=== PATIENT | female | born 1965 ===

== ENCOUNTER 2018-08-07 12:48 | Emergency (ER) | payer BC ==
[2018-08-07 12:48] VITALS: BMI 32.9
[2018-08-07] MEDS ORDERED: Sodium Chloride 0.9% 1,000 ML IV ONE (14:27)
--- NOTE | 2018-08-07 14:27 | C.PDOC ---
History Of Present Illness 52 y/o female presents to the ED complaining of recurrent diarrhea for the past few months. States she had 8-10 episodes of watery diarrhea since this morning. Patient has multiple prior ED evaluations for the same, and was last discharged home with Bentyl. Admits she has the Bentyl at home but did not take it. Patient reports she followed up with Dr. Cardoso and has a colonoscopy scheduled for 08/13. Today she reports diarrhea was similar to prior episodes, but associated with loss of appetite and generalized weakness. Otherwise patient denies any dark or bloody stool, nausea, vomiting, fevers, chills, weight loss, or pain. Nj bullard was previously on Nexium, Omeprazole, and Aciphex. She is not taking anything for the diarrhea. SEEN 01/2018 AND 04/2018, DIARRHEA @ THAT TIME Time Seen by Provider: 08/07/18 13:46 Chief Complaint (Nursing): GI Problem History Per: Patient History/Exam Limitations: no limitations Onset/Duration Of Symptoms: Intermittent Episodes Current Symptoms Are (Timing): Still Present Pain Scale Rating Of: 0 Associated Symptoms: Diarrhea (# 8-10) Past Medical History Reviewed: Historical Data, Nursing Documentation, Vital Signs Vital Signs: Last Vital Signs Temp 98.7 F 08/07/18 13:31 Pulse 77 08/07/18 13:31 Resp 20 08/07/18 13:31 BP 167/110 H 08/07/18 13:31 Pulse Ox 97 08/07/18 13:31 - Medical History PMH: Anxiety, Gastritis, HTN, Hypercholesterolemia, Hyperlipidemia Denies: Chronic Kidney Disease Family History: States: Unknown Family Hx - Social History Hx Alcohol Use: No Hx Substance Use: No - Immunization History Hx Tetanus Toxoid Vaccination: No Hx Influenza Vaccination: Yes Hx Pneumococcal Vaccination: No Review Of Systems Except As Marked, All Systems Reviewed And Found Negative. Constitutional: Positive for: Weakness (generalized). Negative for: Fever, Chills Cardiovascular: Negative for: Palpitations Respiratory: Negative for: Shortness of Breath Gastrointestinal: Positive for: Diarrhea. Negative for: Nausea, Vomiting, Abdominal Pain, Melena, Hematochezia Musculoskeletal: Negative for: Back Pain Neurological: Positive for: Headache (mild). Negative for: Weakness, Numbness, Dizziness Physical Exam - Physical Exam Appears: Non-toxic, No Acute Distress Skin: Normal Color, Warm, Dry Head: Atraumatic, Normacephalic Eye(s): bilateral: Normal Inspection, PERRL, EOMI Oral Mucosa: Moist Neck: Normal ROM Chest: Symmetrical Cardiovascular: Rhythm Regular, No Murmur Respiratory: Normal Breath Sounds, No Accessory Muscle Use, Other (NARD) Gastrointestinal/Abdominal: Bowel Sounds (active), Soft, No Tenderness, No Guarding, No Rebound Back: No CVA Tenderness, No Vertebral Tenderness Extremity: Bilateral: Atraumatic, Normal Color And Temperature Neurological/Psych: Oriented x3, Normal Speech ED Course And Treatment - Laboratory Results Result Diagrams: 08/07/18 15:20 08/07/18 15:20 O2 Sat by Pulse Oximetry: 97 (RA) Pulse Ox Interpretation: Normal Progress - Re-Evaluation Re-evaluation Note: 08/07/18 15:55 D/W DR JOSEPH: RECENT EVAL BY DR CARDOSO LAST WEEK, GIVEN CARAFATE RX. EVAL DR CARDOSO SINCE 2016 FOR SAME. AWARE OF ER FINDINGS, ADVISES CONTINUE MEDS PRESCRIBED BY DR CARDOSO, COLONOSCOPY SCHEDULED. - Data Reviewed Data Reviewed: Lab, Old records Medical Decision Making Medical Decision Making: Impression: Recurrent diarrhea Plan: Patient assessed and examined. Orders placed in for blood work, will compare to prior visit. Administered NS IV fluids and 975 mg PO Tylenol. Disposition Counseled Patient/Family Regarding: Diagnosis, Need For Followup - Disposition Referrals: Colten Cardoso MD [Staff Provider] - Disposition: HOME/ ROUTINE Disposition Time: 15:57 Condition: IMPROVED Instructions: Diarrhea and Traveler's Diarrhea, Adult (DC) Forms: [place] [employer] ([place]) - Clinical Impression Clinical Impression: Chronic diarrhea - Scribe Statement The provider has reviewed the documentation as recorded by the Kelsea Watt Provider Attestation: All medical record entries made by the Brianibe were at my direction and personally dictated by me. I have reviewed the chart and agree that the record accurately reflects my personal performance of the history, physical exam, medical decision making, and the department course for this patient. I have also personally directed, reviewed, and agree with the discharge instructions and d isposition.
[2018-08-07] MEDS ORDERED: Sodium Chloride 0.9% 1,000 ML ONE (14:57)
[2018-08-07 15:32] LABS: BASO % 1.4 % (0.0-2.0); EOS # 0.1 K/uL (0.0-0.7); EOS % 2.4 % (0.0-4.0); HEMOGLOBIN 13.4 g/dL (11.0-16.0); LYMPH # 1.2 K/uL (1.0-4.3); LYMPH % 34.5 % (20.0-40.0); MEAN CELL VOLUME 93.2 fL (81.0-99.0); MEAN CORPUSCULAR HEMOGLOBIN 30.6 pg (27.0-31.0); MEAN CORPUSCULAR HGB CONC 32.9 g/dL (33.0-37.0); MEAN PLATELET VOLUME 8.9 fL (7.2-11.7); MONO # 0.3 K/uL (0.0-0.8); MONO % 8.3 % (0.0-10.0); NEUT # 1.8 K/uL (1.8-7.0); NEUT % 53.4 % (50.0-75.0); NRBC % 0.2 % (0.0-2.0); RBC 4.37 Mil/uL (3.80-5.20); RED CELL DISTRIBUTION WIDTH 15.6 % (11.5-14.5); WHITE BLOOD COUNT 3.4 K/uL (4.8-10.8)
[2018-08-07 15:46] LABS: BLOOD UREA NITROGEN 9 mg/dL (7-17); CALCIUM 8.9 mg/dl (8.6-10.4); GFR NON-AFRICAN AMERICAN > 60
[2018-08-07 16:26] VITALS: BP 148/87; PULSE 74; RESP 14; TEMP 98.8; O2SAT 99
== END 2018-08-07 16:25 | disposition home or self-care (01) ==
LOC: C.ER 12:48
DX: K52.9 Noninfective gastroenteritis and colitis, unspecified (principal)
CPT/HCPCS: 80048; 85025; 96360; 99284; J7030

== ENCOUNTER 2018-08-20 16:06 | Emergency (ER) | payer BC ==
[2018-08-20 16:07] VITALS: BMI 32.9
--- NOTE | 2018-08-20 17:57 | C.PDOC ---
History Of Present Illness Patient is a 52 year old female, with a PMHx of anxiety, panic attacks, HTN, HLD, who presents to the ED today c/o tingling in both distal fingertips and increased warmth to the top of her head. Patient notes that she started having these symptoms yesterday after taking Losartan and after calling he instructed her to discontinue taking medication. She notes that she gets these symptoms every time she takes this medication for the past 3 weeks and states that her symptoms are similar to a resolving panic attack. She notes she took her blood pressure medication today because her bp was in the 150's and at this time denies any headache, head warmth, just tingling in her fingertips. She denies any neck stiffness, rash, headache, nausea, vomiting, falls, focal or neuro deficits, anxiety, depression, SI/HI. Time Seen by Provider: 08/20/18 17:57 Chief Complaint (Nursing): Medical Clearance History Per: Patient History/Exam Limitations: no limitations Onset/Duration Of Symptoms: Days (1) Additional History Per: Patient Past Medical History Reviewed: Historical Data, Nursing Documentation, Vital Signs Vital Signs: Last Vital Signs Temp 98.5 F 08/20/18 16:24 Pulse 89 08/20/18 16:24 Resp 18 08/20/18 16:24 BP 150/92 H 08/20/18 16:24 Pulse Ox 97 08/20/18 16:24 - Medical History PMH: Anxiety, Gastritis, HTN, Hypercholesterolemia, Hyperlipidemia Denies: Chronic Kidney Disease Family History: States: Unknown Family Hx - Social History Hx Alcohol Use: No Hx Substance Use: No - Immunization History Hx Tetanus Toxoid Vaccination: No Hx Influenza Vaccination: Yes Hx Pneumococcal Vaccination: No Review Of Systems Constitutional: Negative for: Fever, Chills, Weakness, Malaise Eyes: Negative for: Pain, Vision Change ENT: Negative for: Ear Pain, Ear Discharge, Mouth Pain, Throat Pain Cardiovascular: Negative for: Chest Pain Respiratory: Negative for: Shortness of Breath Gastrointestinal: Negative for: Nausea, Vomiting Musculoskeletal: Negative for: Neck Pain (stiffness) Skin: Negative for: Rash Neurological: Negative for: Headache, Other (focal or neuro deficits) Psych: Negative for: Anxiety, Depression, Suicidal ideation, Other (homicidal ideation) Physical Exam - Physical Exam Appears: Well, Non-toxic, No Acute Distress Skin: Warm, Dry Head: Atraumatic, Normacephalic, No Tenderness, No Swelling, No Abrasion, No Laceration Eye(s): bilateral: Normal Inspection, PERRL, EOMI Ear(s): Bilateral: Normal Nose: Normal Oral Mucosa: Moist Throat: Normal, No Erythema, No Exudate Neck: Trachea Midline, Supple, Other (No meningeal signs- negative kernig's and brudzinskis) Chest: Symmetrical Cardiovascular: Rhythm Regular, No Friction Rub Respiratory: No Rales, No Rhonchi, No Wheezing Gastrointestinal/Abdominal: Soft, No Tenderness, No Distention Back: Normal Inspection, No CVA Tenderness Extremity: Normal ROM, No Tenderness, No Swelling Extremity: Bilateral: Normal Color And Temperature Pulses: Left Dorsalis Pedis: Normal, Right Dorsalis Pedis: Normal Neurological/Psych: Oriented x3, Normal Speech, Normal Cognition, Normal Cranial Nerves, Normal Motor, Normal Sensation, Normal Reflexes Gait: Steady Extremity: Right: No Drift, Left: No Drift ED Course And Treatment - Laboratory Results Result Diagrams: 08/20/18 20:04 08/20/18 20:04 O2 Sat by Pulse Oximetry: 97 (on RA) Pulse Ox Interpretation: Normal Medical Decision Making Medical Decision Making: Patient is a 52 year old female, with a PMHx of anxiety, panic attacks, HTN, HLD, who presents to the ED today c/o tingling in both distal fingertips and increased warmth to the top of her head s/p ingestion of her losartan. Pt has known allergy by PMD s/p losartan ingestion and was instructed to d/c losartan usage. Pt notes that she used it today because her BP was elevated at 150 systo lic. She was asymptomatic at the time but after ingesting losartan she noted her usual reaction to the medication. She denies any fall or trauma. No meningeal signs. Normal neuro exam. Plan: Labs Ativan 0.5mg PO 2200 labs, unremarkable repeat neuro exam unremarkable no SI / HI, anxiety or depression clear for d/c home with return indications and f/u pt agreeable to plan. 0 pt eloped prior to d/c papers being given Disposition - Disposition Referrals: Brenda Soares MD [Medical Doctor] - [facility] [Outside] Counts Include [facility] [Outside] [facility] [Outside] Disposition: HOME/ ROUTINE Disposition Time: 22:09 Condition: GOOD Additional Instructions: STOP TAKING THE LOSARTAN THAT IS GIVING YOU THE SYMPTOMS. TAKE THE NEW ANTI HYPERTENSIVE THAT YOU WERE PRESCRIBED BY YOUR PRIMARY CARE DOCTOR. RETURN IF ANY OTHER COMPLAINTS. Instructions: Adverse Drug Reactions, Adult (DC), Panic Disorder (DC) Forms: [facility] (German) - Clinical Impression Clinical Impression: Medication side effect, Panic attack - Scribe Statement The provider has reviewed the documentation as recorded by the Kelsea Moore All medical record entries made by the Brianibmerlin were at my direction and personally dictated by me. I have reviewed the chart and agree that the record accurately reflects my personal performance of the history, physical exam, medi julian decision making, and the department course for this patient. I have also personally directed, reviewed, and agree with the discharge instructions and disposition.
[2018-08-20 20:15] LABS: BASO % 0.9 % (0.0-2.0); EOS # 0.1 K/uL (0.0-0.7); HEMOGLOBIN 13.3 g/dL (11.0-16.0); LYMPH # 1.7 K/uL (1.0-4.3); LYMPH % 34.2 % (20.0-40.0); MEAN CELL VOLUME 91.5 fL (81.0-99.0); MEAN CORPUSCULAR HGB CONC 33.9 g/dL (33.0-37.0); MEAN PLATELET VOLUME 8.4 fL (7.2-11.7); MONO # 0.4 K/uL (0.0-0.8); NEUT # 2.8 K/uL (1.8-7.0); NEUT % 54.9 % (50.0-75.0); NRBC % 0.1 % (0.0-2.0); RBC 4.31 Mil/uL (3.80-5.20); RED CELL DISTRIBUTION WIDTH 15.1 % (11.5-14.5)
[2018-08-20 20:28] LABS: ALB/GLOB RATIO 1.6 (1.0-2.1); ALBUMIN 4.3 g/dL (3.5-5.0); ALT/SGPT 134 U/L (9-52); AST/SGOT 125 U/L (14-36); BLOOD UREA NITROGEN 7 mg/dL (7-17); CALCIUM 9.7 mg/dl (8.6-10.4); GFR NON-AFRICAN AMERICAN > 60
[2018-08-20] MEDS ORDERED: Potassium Chloride 20 mEq ER Tab PO ONE (21:40)
[2018-08-20 22:06] VITALS: BP 127/85; PULSE 69; RESP 16; TEMP 98.1
[2018-08-20 22:14] VITALS: O2SAT 97
[2018-08-21] MEDS ORDERED: Potassium Chloride 20 mEq ER Tab PO ONE (21:00)
== END 2018-08-20 22:27 | disposition home or self-care (01) ==
LOC: C.ER 16:06
DX: F41.0 Panic disorder [episodic paroxysmal anxiety] (principal); T46.5X5A Adverse effect of other antihypertensive drugs, initial encounter

== ENCOUNTER 2018-10-09 19:24 | Observation (INO) | payer BC ==
[2018-10-09 19:24] VITALS: BMI 32.9
--- NOTE | 2018-10-09 21:14 | C.PDOC ---
History Of Present Illness 52 year old female with PMHx of HTN and HLD presents to the ED c/o leg swelling that has been worsening for the past few days to weeks. Patient also reports fatigue/sob when walking. Patient denies any other complaints. Time Seen by Provider: 10/09/18 21:05 Chief Complaint (Nursing): Lower Extremity Problem/Injury History Per: Patient History/Exam Limitations: no limitations Onset/Duration Of Symptoms: Days Current Symptoms Are (Timing): Still Present Recent travel outside of the [place]: No Additional History Per: Patient - Ankle/Foot Description Of Injury: Other Past Medical History Reviewed: Historical Data, Nursing Documentation, Vital Signs Vital Signs: Last Vital Signs Temp 98.8 F 10/09/18 19:42 Pulse 77 10/09/18 19:42 Resp 20 10/09/18 19:42 BP 156/103 H 10/09/18 19:42 Pulse Ox 98 10/09/18 19:42 Primary Care Provider: Marybeth Orellana - Medical History PMH: Anxiety, Gastritis, HTN, Hypercholesterolemia, Hyperlipidemia Denies: Chronic Kidney Disease Surgical History: No Surg Hx Family History: States: Unknown Family Hx - Social History Hx Alcohol Use: Yes Hx Substance Use: No - Immunization History Hx Tetanus Toxoid Vaccination: No Hx Influenza Vaccination: Yes Hx Pneumococcal Vaccination: No Review Of Systems Constitutional: Negative for: Fever, Chills Cardiovascular: Negative for: Chest Pain Respiratory: Negative for: Cough, Shortness of Breath Gastrointestinal: Negative for: Nausea, Vomiting, Abdominal Pain Musculoskeletal: Positive for: Leg Pain (swelling) Skin: Negative for: Rash Neurological: Negative for: Weakness, Numbness, Headache, Dizziness Physical Exam - Physical Exam Appears: Non-toxic, No Acute Distress, Other (anxious appearing) Skin: Normal Color, Warm, Dry Head: Atraumatic, Normacephalic Eye(s): bilateral: Normal Inspection Oral Mucosa: Moist Neck: Normal ROM, Supple Chest: Symmetrical Cardiovascular: Rhythm Regular Respiratory: Normal Breath Sounds, No Rales, No Rhonchi, No Wheezing Gastrointestinal/Abdominal: Soft, No Tenderness, No Guarding, No Rebound Extremity: Normal ROM, No Tenderness, Capillary Refill (< 2 seconds), Swelling (bilateral leg) Pulses: Left Dorsalis Pedis: Normal, Right Dorsalis Pedis: Normal Neurological/Psych: Oriented x3, Normal Speech, Normal Cognition Gait: Steady ED Course And Treatment - Laboratory Results Result Diagrams: 10/09/18 21:38 10/09/18 22:15 O2 Sat by Pulse Oximetry: 98 (ON RA) Pulse Ox Interpretation: Normal Medical Decision Making Medical Decision Making: ro dvt pe Plan: * EKG * Labs * CXR labe neg dimer elevated. pt with allergy to iodine. will obs for v/q in am. dr prabhjot hastings. Disposition - Disposition Disposition: HOSPITALIZED Disposition Time: 23:00 Condition: STABLE - Clinical Impression Clinical Impression: Leg swelling, Dyspnea - Scribe Statement The provider has reviewed the documentation as recorded by the Scribe Gilberto Molina All medical record entries made by the Scribe were at my direction and personally dictated by me. I have reviewed the chart and agree that the record accurately reflects my personal performance of the history, physical exam, medical decision making, and the department course for this patient. I have also personally directed, reviewed, and agree with the discharge instructions and disposition. Decision To Admit - Pt Status Changed To: Hospital Disposition Of: Observation - . Bed Request Type: Telemetry Admitting Physician: Johnathon Young Patient Diagnosis: Leg swelling, Dyspnea
[2018-10-09 21:49] LABS: BASO # 0.1 K/uL (0.0-0.2); BASO % 1.1 % (0.0-2.0); EOS # 0.1 K/uL (0.0-0.7); EOS % 1.3 % (0.0-4.0); HEMOGLOBIN 12.6 g/dL (11.0-16.0); LYMPH # 1.7 K/uL (1.0-4.3); LYMPH % 30.2 % (20.0-40.0); MEAN CELL VOLUME 91.3 fL (81.0-99.0); MEAN CORPUSCULAR HEMOGLOBIN 30.7 pg (27.0-31.0); MEAN CORPUSCULAR HGB CONC 33.6 g/dL (33.0-37.0); MEAN PLATELET VOLUME 8.5 fL (7.2-11.7); MONO # 0.4 K/uL (0.0-0.8); MONO % 6.5 % (0.0-10.0); NEUT # 3.5 K/uL (1.8-7.0); NEUT % 60.9 % (50.0-75.0); RBC 4.1 Mil/uL (3.80-5.20); RED CELL DISTRIBUTION WIDTH 15.9 % (11.5-14.5); WHITE BLOOD COUNT 5.7 K/uL (4.8-10.8)
[2018-10-09 22:11] LABS: INR 1.1; PARTIAL THROMBOPLASTIN TIME 29.9 SECONDS (21-34); PROTHROMBIN TIME 12.1 SECONDS (9.7-12.2)
[2018-10-09] MEDS ORDERED: Enoxaparin 150 mg Syringe SC STA (23:04)
[2018-10-09 23:10] LABS: ALB/GLOB RATIO 1.4 (1.0-2.1); ALBUMIN 3.8 g/dL (3.5-5.0); ALT/SGPT 66 U/L (9-52); AST/SGOT 72 U/L (14-36); BLOOD UREA NITROGEN 8 mg/dL (7-17); CALCIUM 8.5 mg/dl (8.6-10.4); GFR NON-AFRICAN AMERICAN > 60
[2018-10-09 23:21] LABS: CK-MB 1.32 ng/mL (0.0-3.38)
[2018-10-09] MEDS ORDERED: Enoxaparin 80 mg Syringe ONE (23:25)
--- NOTE | 2018-10-09 23:31 | CP.PCM.HP ---
<Kaycee Khoury - Last Filed: 10/10/18 05:51> History of Present Illness - History of Present Illness History of Present Illness: cc: LE swelling Patient is a 52 year old female with pmhx of HTN, HLD, panic attacks who presents to the ED with complaints of LE swelling that began this morning. Patient says she was at work, sitting for 1 hour which she normally does not do, and noticed swelling of b/l LE. She then began to feel anxious and developed a panic attack, consistent with previous episodes of racing heart, dizziness and SOB. Patient then elevated her feet and applied ice packs with relief of anxiety and improvement in edema. Patient reports LE edema has been more frequent since her spine supervisor took her off all her medications s/p allergic reaction to losartan. Patient reports non-compliance with low sodium diet. Currently denies headache, dizziness, chest pain, palpitations, SOB, nausea, calf pain pmhx: HTN, HLD, anxiety pshx: right breast cystectomy meds: none currently allergies: nuts; patient denies allergy to iodine sochx: denies famhx: HTN, DM Present on Admission - Present on Admission Any Indicators Present on Admission: No Review of Systems - Constitutional Constitutional: absent: Headache, Weakness - EENT Eyes: absent: Blurred Vision, Change in Vision - Cardiovascular Cardiovascular: absent: Chest Pain, Claudication, Dyspnea, Palpitations, Syncope - Respiratory Respiratory: absent: Cough, Dyspnea - Gastrointestinal Gastrointestinal: absent: Abdominal Pain, Nausea - Musculoskeletal Musculoskeletal: Limited Range of Motion (2/2 LE edema). absent: Muscle Cramps - Neurological Neurological: absent: Confusion, Dizziness, Paresthesias, Weakness - Psychiatric Psychiatric: Anxiety, Panic Attacks Past Patient History - Past Social History Smoking Status: Never Smoked - CARDIAC Hx Hypercholesterolemia: Yes Hx Hypertension: Yes - PULMONARY Hx Respiratory Disorders: No - NEUROLOGICAL Hx Neurological Disorder: No - HEENT Hx HEENT Problems: No - RENAL Hx Chronic Kidney Disease: No - ENDOCRINE/METABOLIC Hx Endocrine Disorders: Yes - HEMATOLOGICAL/ONCOLOGICAL Hx Blood Disorders: No - INTEGUMENTARY Hx Dermatological Problems: No - MUSCULOSKELETAL/RHEUMATOLOGICAL Hx Musculoskeletal Disorders: No - GASTROINTESTINAL Hx Gastritis: Yes - GENITOURINARY/GYNECOLOGICAL Hx Genitourinary Disorders: No - PSYCHIATRIC Hx Anxiety: Yes Hx Substance Use: No - SURGICAL HISTORY Hx Surgeries: Yes Other/Comment: RIGHT BREAST CYST REMOVAL - ANESTHESIA Hx Anesthesia: No Meds Allergies/Adverse Reactions: Allergies Allergy/AdvReac Type Severity Reaction Status Date / Time ibuprofen Allergy Intermediate RASH Verified 10/09/18 19:45 iodine Allergy RASH Verified 10/09/18 19:45 NUTS Allergy RASH Uncoded 10/10/18 00:09 Physical Exam - Constitutional Appears: Non-toxic, No Acute Distress - Head Exam Head Exam: ATRAUMATIC, NORMAL INSPECTION, NORMOCEPHALIC - Eye Exam Eye Exam: EOMI, Normal appearance Pupil Exam: NORMAL ACCOMODATION, PERRL - ENT Exam ENT Exam: Mucous Membranes Moist, Normal Exam - Neck Exam Neck exam: Positive for: Normal Inspection - Respiratory Exam Respiratory Exam: Clear to Auscultation Bilateral, NORMAL BREATHING PATTERN. absent: Respiratory Distress - Cardiovascular Exam Cardiovascular Exam: REGULAR RHYTHM, +S1, +S2. absent: Tachycardia - GI/Abdominal Exam GI & Abdominal Exam: Normal Bowel Sounds, Soft. absent: Distended, Tenderness - Extremities Exam Extremities exam: Positive for: normal inspection, pedal edema (2+ non pitting edema b/l, mid calf through feet), pedal pulses present. Negative for: calf tenderness, joint swelling Additional comments: negative Howmans sign - Back Exam Back exam: NORMAL INSPECTION - Neurological Exam Neurological exam: Alert, Oriented x3 - Psychiatric Exam Psychiatric exam: Normal Affect, Normal Mood - Skin Skin Exam: Dry, Intact, Normal Color, Warm Results - Vital Signs Recent Vital Signs: Last Vital Signs Temp 98.8 F 10/09/18 19:42 Pulse 77 10/09/18 19:42 Resp 20 10/09/18 19:42 BP 156/103 H 10/09/18 19:42 Pulse Ox 98 10/09/18 21:16 - Labs Result Diagrams: 10/09/18 21:38 10/09/18 22:15 Labs: Laboratory Results - last 24 hr 10/09/18 10/09/18 10/09/18 21:38 21:38 21:38 WBC 5.7 RBC 4.10 Hgb 12.6 Hct 37.5 MCV 91.3 MCH 30.7 MCHC 33.6 RDW 15.9 H Plt Count 245 MPV 8.5 Neut % (Auto) 60.9 Lymph % (Auto) 30.2 Powell % (Auto) 6.5 Eos % (Auto) 1.3 Baso % (Auto) 1.1 Neut # (Auto) 3.5 Lymph # (Auto) 1.7 Powell # (Auto) 0.4 Eos # (Auto) 0.1 Baso # (Auto) 0.1 PT 12.1 INR 1.1 APTT 29.9 D-Dimer, Quantitative 738 H Sodium Cancelled Potassium Cancelled Chloride Cancelled Carbon Dioxide Cancelled Anion Gap Cancelled BUN Cancelled Creatinine Cancelled Est GFR ( Amer) Cancelled Est GFR (Non-Af Amer) Cancelled Random Glucose Cancelled Calcium Cancelled Phosphorus Magnesium Total Bilirubin Cancelled AST Cancelled ALT Cancelled Alkaline Phosphatase Cancelled Total Creatine Kinase CK-MB (Mass) Troponin I Cancelled NT-Pro-B Natriuret Pep Cancelled Total Protein Cancelled Albumin Cancelled Globulin Cancelled Albumin/Globulin Ratio Cancelled 10/09/18 22:15 WBC RBC Hgb Hct MCV MCH MCHC RDW Plt Count MPV Neut % (Auto) Lymph % (Auto) Powell % (Auto) Eos % (Auto) Baso % (Auto) Neut # (Auto) Lymph # (Auto) Powell # (Auto) Eos # (Auto) Baso # (Auto) PT INR APTT D-Dimer, Quantitative Sodium 138 Potassium 3.3 L Chloride 102 Carbon Dioxide 23 Anion Gap 16 BUN 8 Creatinine 0.6 L Est GFR ( Amer) > 60 Est GFR (Non-Af Amer) > 60 Random Glucose 102 D Calcium 8.5 L Phosphorus 2.7 Magnesium 1.3 L Total Bilirubin 0.6 AST 72 H D ALT 66 H D Alkaline Phosphatase 62 Total Creatine Kinase 133 CK-MB (Mass) 1.32 Troponin I < 0.0120 NT-Pro-B Natriuret Pep Total Protein 6.5 Albumin 3.8 Globulin 2.7 Albumin/Globulin Ratio 1.4 Assessment & Plan (1) Elevated d-dimer Assessment and Plan: -d-dimer elevated at 738, baseline unknown -EKG: NSR -therapeutic LVX in ED -monitor on telemetry -continue therapeutic LVX @ 80 q12 -V/Q ordered 2/2 noted iodine allergy, although pt denies; r/o PE -venous duplex LE; r/o DVT -O2 via NC prn -low risk factors for VTE(obesity); (no recent hospitalization or surgery, no prolonged immobilization, no fam hx of VTE, no malignancy, no estrogen use, no i njury/trauma, not ) Status: Acute (2) Bilateral lower extremity edema Assessment and Plan: -f/u venous duplex b/l LE, rule out DVT -SCD contraindication 2/2 edema Status: Acute (3) Electrolyte abnormality Assessment and Plan: -K+ 3.3, repleted w/ K-dur 40 -Mg 1.3(corrected 1.48), repleted w/ mag-ox 400mg po BID x2 -continue to monitor and replete prn Status: Acute (4) HTN (hypertension) Assessment and Plan: -hold meds on hold per spine supervisor pending allergy workup -BP stable during hospitalization thus far, continue to monitor -HHD, low Na+ Status: Chronic (5) HLD (hyperlipidemia) Assessment and Plan: -home meds on hold per pt's spine supervisor Status: Chronic (6) Anxiety Assessment and Plan: -home meds on hold per pt's spine supervisor Status: Chronic - Assessment and Plan (Free Text) Assessment: 52 year old female w/ pmhx of HTN, HLD, anxiety presenting with LE edema, admitted for further evaluation of elevated d-dimer <Johnathon Young - Last Filed: 10/10/18 06:27> Results - Vital Signs Recent Vital Signs: Last Vital Signs Temp 99 F 10/10/18 04:20 Pulse 69 10/10/18 04:20 Resp 20 10/10/18 04:20 BP 143/78 10/10/18 04:20 Pulse Ox 98 10/10/18 04:20 - Labs Result Diagrams: 10/09/18 21:38 10/09/18 22:15 Labs: Laboratory Results - last 24 hr 10/09/18 10/09/18 10/09/18 21:38 21:38 21:38 WBC 5.7 RBC 4.10 Hgb 12.6 Hct 37.5 MCV 91.3 MCH 30.7 MCHC 33.6 RDW 15.9 H Plt Count 245 MPV 8.5 Neut % (Auto) 60.9 Lymph % (Auto) 30.2 Powell % (Auto) 6.5 Eos % (Auto) 1.3 Baso % (Auto) 1.1 Neut # (Auto) 3.5 Lymph # (Auto) 1.7 Powell # (Auto) 0.4 Eos # (Auto) 0.1 Baso # (Auto) 0.1 PT 12.1 INR 1.1 APTT 29.9 D-Dimer, Quantitative 738 H Sodium Cancelled Potassium Cancelled Chloride Cancelled Carbon Dioxide Cancelled Anion Gap Cancelled BUN Cancelled Creatinine Cancelled Est GFR ( Amer) Cancelled Est GFR (Non-Af Amer) Cancelled Random Glucose Cancelled Calcium Cancelled Phosphorus Magnesium Total Bilirubin Cancelled AST Cancelled ALT Cancelled Alkaline Phosphatase Cancelled Total Creatine Kinase CK-MB (Mass) Troponin I Cancelled NT-Pro-B Natriuret Pep Cancelled Total Protein Cancelled Albumin Cancelled Globulin Cancelled Albumin/Globulin Ratio Cancelled 10/09/18 22:15 WBC RBC Hgb Hct MCV MCH MCHC RDW Plt Count MPV Neut % (Auto) Lymph % (Auto) Powell % (Auto) Eos % (Auto) Baso % (Auto) Neut # (Auto) Lymph # (Auto) Powell # (Auto) Eos # (Auto) Baso # (Auto) PT INR APTT D-Dimer, Quantitative Sodium 138 Potassium 3.3 L Chloride 102 Carbon Dioxide 23 Anion Gap 16 BUN 8 Creatinine 0.6 L Est GFR ( Amer) > 60 Est GFR (Non-Af Amer) > 60 Random Glucose 102 D Calcium 8.5 L Phosphorus 2.7 Magnesium 1.3 L Total Bilirubin 0.6 AST 72 H D ALT 66 H D Alkaline Phosphatase 62 Total Creatine Kinase 133 CK-MB (Mass) 1.32 Troponin I < 0.0120 NT-Pro-B Natriuret Pep Total Protein 6.5 Albumin 3.8 Globulin 2.7 Albumin/Globulin Ratio 1.4 Assessment & Plan - Date & Time Date: 10/10/18 (I have seen and examined the patient. I agree with the findings and plan of care as documented by Dr. Khoury. Patient with elevated d-dimer and bilateral leg edema. Check lower extremity dopplers. Unable to check CT angio due to allergy. Check VQ scan in morning. Lovenox for now. History of hypertension. Home meds on hold as per patient's cardio. Continue to monitor. Monitor for acute changes.) Time: 06:25 Attending/Attestation - Attestation I have personally seen and examined this patient.: Yes I have fully participated in the care of the patient.: Yes I have reviewed all pertinent clinical information: Yes
[2018-10-10 00:33] VITALS: RESP 20
[2018-10-10] MEDS ORDERED: Potassium Chloride 20 mEq ER Tab PO ONE (01:30)
--- NOTE | 2018-10-10 07:40 | RAD ---
Date of service: 10/09/2018 HISTORY: sob COMPARISON: No prior. TECHNIQUE: Chest PA and lateral views FINDINGS: LUNGS: No acute infiltrate bilaterally. Right hemidiaphragm elevation noted of indeterminate etiology. PLEURA: No significant pleural effusion identified. No pneumothorax apparent. CARDIOVASCULAR: No aortic atherosclerotic calcification present. Cardiac size upper limits normal. No pulmonary vascular congestion. OSSEOUS STRUCTURES: No significant abnormalities. VISUALIZED UPPER ABDOMEN: Normal. OTHER FINDINGS: None. IMPRESSION: Mildly elevated right hemidiaphragm. Cardiac size upper limits normal. No infiltrate or pulmonary vascular congestion bilaterally.
--- NOTE | 2018-10-10 07:44 | CP.PCM.PN ---
Subjective - Date & Time of Evaluation Date of Evaluation: 10/10/18 Time of Evaluation: 07:44 Objective - Vital Signs/Intake and Output Vital Signs (last 24 hours): Temp Pulse Resp BP Pulse Ox 99 F 69 20 143/78 98 10/10/18 04:20 10/10/18 04:20 10/10/18 04:20 10/10/18 04:20 10/10/18 04:20 Intake and Output: 10/10/18 10/10/18 06:59 18:59 Intake Total 210 Balance 210 - Medications Medications: Current Medications Enoxaparin Sodium (Lovenox) 80 mg SC Q12 RELL Famotidine (Pepcid) 20 mg PO BID RELL Magnesium Oxide (Mag-Ox) 400 mg PO BID RELL Stop: 10/11/18 10:00 - Labs Labs: 10/09/18 21:38 10/09/18 22:15 PT 12.1 SECONDS (9.7-12.2) 10/09/18 21:38 INR 1.1 10/09/18 21:38 APTT 29.9 SECONDS (21-34) 10/09/18 21:38
[2018-10-10 08:07] LABS: BASO # 0.1 K/uL (0.0-0.2); BASO % 1.4 % (0.0-2.0); EOS # 0.1 K/uL (0.0-0.7); HEMOGLOBIN 12.7 g/dL (11.0-16.0); LYMPH # 1.5 K/uL (1.0-4.3); LYMPH % 40.9 % (20.0-40.0); MEAN CELL VOLUME 92.7 fL (81.0-99.0); MEAN CORPUSCULAR HEMOGLOBIN 31.6 pg (27.0-31.0); MEAN CORPUSCULAR HGB CONC 34.1 g/dL (33.0-37.0); MEAN PLATELET VOLUME 8.3 fL (7.2-11.7); MONO # 0.3 K/uL (0.0-0.8); MONO % 8.7 % (0.0-10.0); NEUT # 1.6 K/uL (1.8-7.0); NRBC % 0.1 % (0.0-2.0); RBC 4.01 Mil/uL (3.80-5.20); RED CELL DISTRIBUTION WIDTH 15.8 % (11.5-14.5); WHITE BLOOD COUNT 3.6 K/uL (4.8-10.8)
[2018-10-10 08:27] LABS: ALB/GLOB RATIO 1.4 (1.0-2.1); ALT/SGPT 63 U/L (9-52); AST/SGOT 71 U/L (14-36); BLOOD UREA NITROGEN 6 mg/dL (7-17); CALCIUM 8.9 mg/dl (8.6-10.4); GFR NON-AFRICAN AMERICAN > 60
[2018-10-10 08:31] VITALS: BP 142/91; PULSE 70; TEMP 98.8; O2SAT 97
[2018-10-10] MEDS ORDERED: Enoxaparin 80 mg Syringe SC SCH (10:00)
[2018-10-10] MEDS ORDERED: Magnesium Oxide 400 mg Tab UD PO SCH (10:00)
--- NOTE | 2018-10-10 10:23 | NM ---
Date of service: 10/10/2018 COMPARISON: October 09, 2018. TECHNIQUE: 3.9 mCi technetium 99-m Xe-133 Gas. 3.5 mCI technetium 99-m MAA administered intravenously. FINDINGS: VENTILATION COMPONENT: Normal. PERFUSION COMPONENT: Heterogeneous distribution of radionuclide. No geographic, segmental, lobar abnormalities apparent on the present examination. IMPRESSION: Low probability ventilation perfusion scan for pulmonary embolism.
--- NOTE | 2018-10-10 11:21 | CP.PCM.DIS ---
Provider - Provider Date of Admission: 10/09/18 23:28 Attending physician: Johnathon Young MD Time Spent in preparation of Discharge (in minutes): 45 Diagnosis - Discharge Diagnosis (1) Bilateral lower extremity edema Status: Chronic (2) Elevated d-dimer Status: Acute (3) Anxiety Status: Chronic (4) HLD (hyperlipidemia) Status: Chronic (5) HTN (hypertension) Status: Chronic (6) Panic attack Status: Resolved Hospital Course - Lab Results Lab Results: Most Recent Lab Values WBC 3.6 K/uL (4.8-10.8) L 10/10/18 07:59 RBC 4.01 Mil/uL (3.80-5.20) 10/10/18 07:59 Hgb 12.7 g/dL (11.0-16.0) 10/10/18 07:59 Hct 37.1 % (34.0-47.0) 10/10/18 07:59 MCV 92.7 fL (81.0-99.0) 10/10/18 07:59 MCH 31.6 pg (27.0-31.0) H 10/10/18 07:59 MCHC 34.1 g/dL (33.0-37.0) 10/10/18 07:59 RDW 15.8 % (11.5-14.5) H 10/10/18 07:59 Plt Count 218 K/uL (130-400) 10/10/18 07:59 MPV 8.3 fL (7.2-11.7) 10/10/18 07:59 Neut % (Auto) 46.0 % (50.0-75.0) L 10/10/18 07:59 Lymph % (Auto) 40.9 % (20.0-40.0) H 10/10/18 07:59 Brule % (Auto) 8.7 % (0.0-10.0) 10/10/18 07:59 Eos % (Auto) 3.0 % (0.0-4.0) 10/10/18 07:59 Baso % (Auto) 1.4 % (0.0-2.0) 10/10/18 07:59 Neut # (Auto) 1.6 K/uL (1.8-7.0) L 10/10/18 07:59 Lymph # (Auto) 1.5 K/uL (1.0-4.3) 10/10/18 07:59 Brule # (Auto) 0.3 K/uL (0.0-0.8) 10/10/18 07:59 Eos # (Auto) 0.1 K/uL (0.0-0.7) 10/10/18 07:59 Baso # (Auto) 0.1 K/uL (0.0-0.2) 10/10/18 07:59 PT 12.1 SECONDS (9.7-12.2) 10/09/18 21:38 INR 1.1 10/09/18 21:38 APTT 29.9 SECONDS (21-34) 10/09/18 21:38 D-Dimer, Quantitative 738 ng/mlDDU (0-243) H 10/09/18 21:38 Sodium 138 mmol/L (132-148) 10/10/18 07:59 Potassium 3.7 mmol/L (3.6-5.2) 10/10/18 07:59 Chloride 103 mmol/L (98-107) 10/10/18 07:59 Carbon Dioxide 25 mmol/L (22-30) 10/10/18 07:59 Anion Gap 14 (10-20) 10/10/18 07:59 BUN 6 mg/dL (7-17) L 10/10/18 07:59 Creatinine 0.6 mg/dL (0.7-1.2) L 10/10/18 07:59 Est GFR ( Amer) > 60 10/10/18 07:59 Est GFR (Non-Af Amer) > 60 10/10/18 07:59 Random Glucose 111 mg/dL (65-105) H 10/10/18 07:59 Calcium 8.9 mg/dl (8.6-10.4) 10/10/18 07:59 Phosphorus 2.4 mg/dL (2.5-4.5) L 10/10/18 07:59 Magnesium 1.6 mg/dL (1.6-2.3) 10/10/18 07:59 Total Bilirubin 1.0 mg/dL (0.2-1.3) 10/10/18 07:59 AST 71 U/L (14-36) H 10/10/18 07:59 ALT 63 U/L (9-52) H 10/10/18 07:59 Alkaline Phosphatase 63 U/L (38-126) 10/10/18 07:59 Total Creatine Kinase 133 U/L (30-135) 10/09/18 22:15 CK-MB (Mass) 1.32 ng/mL (0.0-3.38) 10/09/18 22:15 Troponin I < 0.0120 ng/mL (0.00-0.120) 10/09/18 22:15 NT-Pro-B Natriuret Pep Cancelled 10/09/18 21:38 Total Protein 6.8 g/dL (6.3-8.3) 10/10/18 07:59 Albumin 4.0 g/dL (3.5-5.0) 10/10/18 07:59 Globulin 2.9 gm/dL (2.2-3.9) 10/10/18 07:59 Albumin/Globulin Ratio 1.4 (1.0-2.1) 10/10/18 07:59 Urine HCG, Qual Negative (NEGATIVE) 10/10/18 08:12 - Hospital Course Hospital Course: Patient is a 52 year old female with pmhx of HTN, HLD, panic attacks who presents to the ED with complaints of LE swelling that has been worsening in the past month. She also began to feel anxious and developed a panic attack, consistent with previous episodes of racing heart, dizziness and SOB. Patient was admitted to rule out DVT and PE. During her hospital stay, patient had a V/Q scan that showed low probability for PE and lower extremities venous doppler that showed no DVT's. CXR showed mildly elevated right hemidiaphragm but otherwise no acute findings. EKG showed NSR @ [address] changes. Patient states that she was started on a new medication for her hypertension one month ago and had a very bad allergic reaction. Therefore her home medications are being held for 3 weeks per receiving associate store pending allergy workup. Upon discharge, patient was instructed to follow up with her PMD within one week. She was also instructed to follow up with her receiving associate store to complete her allergy test. She was instructed to follow up with a psychiatrist that she has been referred to by her PMD. Patient is medically stable for discharge. Discharge Exam - Head Exam Head Exam: ATRAUMATIC, NORMAL INSPECTION - Eye Exam Eye Exam: EOMI, Normal appearance Pupil Exam: NORMAL ACCOMODATION - Neck Exam Neck exam: Full Rom - Respiratory Exam Respiratory Exam: Clear to PA & Lateral, NORMAL BREATHING PATTERN. absent: Rales, Rhonchi, Wheezes, Respiratory Distress - Cardiovascular Exam Cardiovascular Exam: REGULAR RHYTHM, +S1, +S2. absent: Bradycardia, Tachyca rdia, Gallop, Rubs, Systolic Murmur - GI/Abdominal Exam GI & Abdominal Exam: Normal Bowel Sounds, Soft. absent: Distended, Firm, Tenderness - Extremities Exam Additional comments: +1 pitting edema from feet to tibial tuberosity - Back Exam Back exam: absent: CVA tenderness (L), CVA tenderness (R) - Neurological Exam Neurological exam: Alert, CN II-XII Intact, Oriented x3 - Psychiatric Exam Psychiatric exam: Anxious - Skin Skin Exam: Dry, Intact, Normal Color, Warm Discharge Plan - Follow Up Plan Condition: STABLE Disposition: HOME/ ROUTINE Additional Instructions: - Resume your home medications after you have done the allergy test and discuss with your Primary care doctor/receiving associate store when to resume your home medications. - Follow up with your primary care doctor within 1 week of discharge. - Follow up with your receiving associate store to get your allergy test next week. If you are scheduled for lower extremities venous dopplers, the test has been done already. You have been given a copy of your test results. - It is important to follow up with a psychiatrist that you have been referred to by your primary care doctor. - Return to the emergency room for worsening or newly concerning symptoms. Referrals: Marybeth Orellana [Staff Provider] -
--- NOTE | 2018-10-10 11:47 | CARD ---
APPROVED REPORT Date of service: 10/09/2018 EKG Measurement Heart [id number] [id number] <Conclusion> Normal sinus rhythm Normal ECG
--- NOTE | 2018-10-10 13:00 | VASCLAB ---
Date of service: 10/10/2018 PROCEDURE: Lower Extremity Venous Duplex Exam. HISTORY: LE edema, elevated d-dimer PRIORS: None. TECHNIQUE: Bilateral common femoral, femoral, popliteal and posterior tibial, peroneal and great saphenous veins were evaluated. Flow was assessed with color Doppler, compressibility, assessment of phasic flow and augmentation response. Report prepared by Aquiles Tatum, BS, RVT FINDINGS: RIGHT: 1. Common Femoral Vein: 1.1. Compressibility - Fully compressible: Thrombus - None : Flow - Phasic: Augmentation -Normal: Reflux - None. 2. Femoral Vein: 2.1. Compressibility - Fully compressible: Thrombus - None : Flow - Phasic: Augmentation -Normal: Reflux - None. 3. Popliteal Vein: 3.1. Compressibility - Fully compressible: Thrombus - None : Flow - Phasic: Augmentation -Normal: Reflux - None. 4. Posterior Tibial Vein: 4.1. Compressibility - Fully compressible: Thrombus - None: Flow - Phasic: Augmentation -Normal: Reflux - None. 5. Peroneal Vein: 5.1. Compressibility - Fully compressible: Thrombus - None: Flow - Phasic: Augmentation -Normal: Reflux - None. 6. Great Saphenous Vein: 6.1. Compressibility - Fully compressible: Thrombus - None: Flow - Phasic: Augmentation - Normal: Reflux - None. LEFT: 1. Common Femoral Vein: 1.1. Compressibility - Fully compressible: Thrombus - None: Flow - Phasic: Augmentation -Normal: Reflux - None. 2. Femoral Vein: 2.1. Compressibility - Fully compressible: Thrombus - None: Flow - Phasic: Augmentation -Normal: Reflux - None. 3. Popliteal Vein: 3.1. Compressibility - Fully compressible: Thrombus - None : Flow - Phasic: Augmentation -Normal: Reflux - None. 4. Posterior Tibial Vein: 4.1. Compressibility - Fully compressible: Thrombus - None: Flow - Phasic: Augmentation -Normal: Reflux - None. 5. Peroneal Vein: 5.1. Compressibility - Fully compressible: Thrombus - None: Flow - Phasic: Augmentation -Normal: Reflux - None. 6. Great Saphenous Vein: 6.1. Compressibility - Fully compressible: Thrombus - None: Flow - Phasic: Augmentation - Normal: Reflux - None. OTHER FINDINGS: Right: None significant. Left: None significant. IMPRESSION: Right: No evidence of deep or superficial vein thrombosis of the right lower extremity. Normal valve function noted of the right side. Left: No evidence of deep or superficial vein thrombosis of the left lower extremity. Normal valve function noted of the left side.
== END 2018-10-10 12:55 | disposition home or self-care (01) ==
LOC: C.ER 19:24 → C.6T 23:28
PROVIDERS: ADMIT Family Medicine; ATTEND Family Medicine
DX: R60.0 Localized edema (principal); E11.9 Type 2 diabetes mellitus without complications; E78.00 Pure hypercholesterolemia, unspecified; E78.5 Hyperlipidemia, unspecified; F41.0 Panic disorder [episodic paroxysmal anxiety]; I10 Essential (primary) hypertension; Z91.11 Patient's noncompliance with dietary regimen; K29.70 Gastritis, unspecified, without bleeding; R79.89 Other specified abnormal findings of blood chemistry
CPT/HCPCS: 36415; 71046; 78582; 80053; 83735; 84100; 84484; 84703; 85025; 85378; 85610; 85730; 93005; 93970; 96372; 99285; A9540; A9558; G0378; J1650